=== PATIENT | female | born 1955 | race Caucasian/White ===

== ENCOUNTER → 2024-01-16 | Outpatient (CLI) | payer MEDICARE, OTHER ==
[2024-01-16 09:08] LABS: BASO # 0.01 K/mm3 (0.02-0.10); EOS # 0.04 K/mm3 (0.04-0.40); EOS % 1.1 % (1.0-5.0); HEMATOCRIT 41.4 % (37.0-47.0); HEMOGLOBIN 13.5 g/dL (12.5-16.0); LYMPH# 1.46 K/mm3 (1.50-4.00); MEAN CELL VOLUME 89 fl (78-100); MEAN CORPUSCULAR HEMOGLOBIN 29 pg (27-31); MEAN CORPUSCULAR HGB CONC 33 g/dL (33-37); MEAN PLATELET VOLUME 9.8 fl (7.4-10.4); MONO # 0.27 K/mm3 (0.20-0.80); NEU # 1.85 K/mm3 (1.40-6.50); PLATELET COUNT 131 K/mm3 (130-400); RED BLOOD COUNT 4.65 M/mm3 (4.10-5.30); RED CELL DISTRIBUTION WIDTH 13.8 % (11.5-14.5); WHITE BLOOD COUNT 3.6 K/mm3 (4.8-10.8)
[2024-01-16 09:15] LABS: ALBUMIN 4.9 g/dL (3.4-4.8)
[2024-01-16 09:16] LABS: CALCIUM 10.3 mg/dL (8.3-10.5)
[2024-01-16 09:17] LABS: TOTAL PROTEIN 7.6 g/dL (6.2-8.1)
[2024-01-16 09:19] LABS: TOTAL BILIRUBIN 0.5 mg/dL (0.2-1.2)
[2024-01-16 22:37] LABS: HEPATITIS C VIRUS ANTIBODY Negative (Negative)
== END ==
LOC: RAD 08:47
PROVIDERS: Physician Assistant
DX: M16.11 Unilateral primary osteoarthritis, right hip (principal); M51.36 Other intervertebral disc degeneration, lumbar region; Z11.59 Encounter for screening for other viral diseases; Z13.29 Encounter for screening for other suspected endocrine disorder; Z13.1 Encounter for screening for diabetes mellitus; E78.5 Hyperlipidemia, unspecified; K90.9 Intestinal malabsorption, unspecified

== ENCOUNTER 2024-01-21 08:00 | Outpatient (RCR) | payer MEDICARE, OTHER | END 2024-02-14 | disposition home or self-care (01) | LOC: PT | DX: M25.551 Pain in right hip (principal) ==

== ENCOUNTER → 2024-05-29 | Outpatient (CLI) | payer MEDICARE, OTHER | LOC: RAD 14:37 | DX: M16.0 Bilateral primary osteoarthritis of hip (principal); M54.50 Low back pain, unspecified ==

== ENCOUNTER 2024-06-02 08:56 | Outpatient (RCR) | payer MEDICARE, OTHER | END 2024-06-15 | disposition home or self-care (01) | LOC: PT | DX: M54.16 Radiculopathy, lumbar region (principal) ==

== ENCOUNTER 2024-06-16 08:30 | Outpatient (RCR) | payer MEDICARE, OTHER | END 2024-07-16 | disposition home or self-care (01) | LOC: PT | DX: M25.551 Pain in right hip (principal); M54.50 Low back pain, unspecified ==

== ENCOUNTER 2024-07-20 08:31 | Outpatient (RCR) | payer MEDICARE, OTHER | END 2024-08-04 14:21 | disposition home or self-care (01) | LOC: PT 08:31 | DX: M25.551 Pain in right hip (principal) ==